=== PATIENT | male | born 1990 | race Caucasian/White ===

== ENCOUNTER 2019-06-29 | Observation (INO) | payer OTHER ==
[~2019-06-29] MED LIST: BACTRIM DS1 TAB PO
--- NOTE | 2019-06-29 00:40 | NUR ---
A/O M WITH STATED COMPLAINT HE THINKS HE BROKE HIS INJECTING NEEDLE INTO HIS RAC VEIN WHILE SHOOTING DRUGS [employer].RAC IN RED INJECTED NEUROVASC CK RUE WNL.NO PALP MASSES.
[2019-06-29 01:03] LABS: HEMATOCRIT 44.2 % (39.0-50.0); HEMOGLOBIN 15.2 g/dl (14.0-18.0); IMMATURE GRANULOCYTES 0.3 % (0.0-5.0); MEAN CELL VOLUME 89.1 fL CALC (80.0-100.0); MEAN CORPUSCULAR HGB 30.6 pG CALC (26.0-32.0); MEAN CORPUSCULAR HGB CONC 34.4 g/dL CAL (32.0-36.0); NEUT# 6.18 thou/uL (1.82-7.42); RED BLOOD COUNT 4.96 mill/uL (4.70-6.10); RED CELL DISTRI WIDTH 12.4 % (11.5-15.5)
[2019-06-29 01:19] LABS: ANION GAP 15 (6-22 (CALC)); BUN 14 mg/dL (9-20); BUN/CREATININE RATIO 12 (12-20 (CALC)); CARBON DIOXIDE 28 mmol/l (22-30); CHLORIDE 98 mmol/l (95-108); CREATININE 1.2 mg/dL (0.7-1.3); GFR > 60 ML/MIN (>=60 (CALC)); GFR FOR AFR.AMER. > 60 ML/MIN (>=60 (CALC)); POTASSIUM 4.2 mmol/l (3.5-5.1); SODIUM 138 mmol/l (137-146)
--- NOTE | 2019-06-29 01:39 | NUR ---
PT IS COMFORTABLY PAINFREE.W/P/D SKIN IVPB COMPLETED
--- NOTE | 2019-06-29 02:34 | NUR ---
W/D SKIN RUE ELEV ON BED.NO C/O PAIN NEUROVASC CK RUE WNL.WATER PO AT PT'S REQUEST
--- NOTE | 2019-06-29 03:02 | NUR ---
PHONE REPORT TO NURSE FABBY IN [facility] ICU
--- NOTE | 2019-06-29 03:08 | NUR ---
PT TO ICU VIA WC IN STAABLE CONDITION
[2019-06-29 03:15] VITALS: BP 136/66
--- NOTE | 2019-06-29 03:15 | NUR ---
29 yr old white male admitted icu3 per as medsurg overflow. sheriff deputy macias pt. transferred self to bed. bed weight obtained. photo taken of puncture site rac. #20 lac saline lock. history obtined per pt & er record. oriented to room. fall precautions initiated.
--- NOTE | 2019-06-29 06:45 | NUR ---
REPORT RECEIVED FROM Abbey ARANDA LPN. CARE ASSUMED.
--- NOTE | 2019-06-29 07:00 | NUR ---
PT RESTING IN BED WITH EYES CLOSED. PT AROUSES TO VERBAL STIMULI. PT IS ALERT AND ORIENTED X3. SHIFT ASSESSMENT COMPLETED AT THIS TIME. IV PATENT X1. CALL LIGHT IN REACH. WILL CONTINUE TO MONITOR.
[2019-06-29 08:00] VITALS: BP 123/79
--- NOTE | 2019-06-29 08:58 | NUR ---
DR JANE AT BEDSIDE.
--- NOTE | 2019-06-29 09:15 | NUR ---
CONSENT OBTAINED FOR REMOVAL OF FOREIGN BODY
--- NOTE | 2019-06-29 09:30 | NUR ---
TURKEY SANDWICH PROVIDED PER PT REQUEST.
--- NOTE | 2019-06-29 10:45 | NUR ---
DR JANE AT BEDSIDE AT THIS TIME FOR FOREIGN BODY REMOVAL.
[2019-06-29] MEDS ORDERED: KEFLEX500 MG PO (11:11)
--- NOTE | 2019-06-29 11:40 | NUR ---
PT PROVIDED LUNCH TRAY AT THIS TIME.
--- NOTE | 2019-06-29 12:05 | NUR ---
DISCHARGE INSTRUCTIONS REVIEWED WITH PATIENT AND DEPUTY BOTH VERBALIZED UNDERSTANDING. INSTRUCTIONS AND PRESCRIPTION GIVEN TO DEPUTY. #20 REMOVED TO LAC. CATH TIP INTACT. PT TOLERATED WELL.
--- NOTE | 2019-06-29 12:14 | NUR ---
Discharge instructions given. Patient verbalizes understanding of same. Discharged in stable condition via [facility] with *Other. All belongings sent with pt.
== END 2019-06-29 12:14 | DRG 909 ==
PROVIDERS: Emergency Medicine; ADMIT Surgery
PROC: 05CY0ZZ Extirpation of Matter from Upper Vein, Open Approach (ICD-10-PCS; principal; 2019-06-29)
DX: S51.841A Puncture wound with foreign body of right forearm, initial encounter (principal); I10 Essential (primary) hypertension; W26.8XXA Contact with other sharp object(s), not elsewhere classified, initial encounter; W45.8XXA Other foreign body or object entering through skin, initial encounter; Y93.89 Activity, other specified

== ENCOUNTER 2019-08-30 22:19 | Emergency (ER) | payer SELFPAY ==
[~2019-08-30] VITALS: Ht 172.7 cm; Wt 67.0 kg
[~2019-08-30 22:19] MED LIST changes: +KEFLEX500 MG PO
[2019-08-30 23:20] LABS: HEMATOCRIT 38.6 % (39.0-50.0); IMMATURE GRANULOCYTES 0.1 % (0.0-5.0); MEAN CORPUSCULAR HGB 30.6 pG CALC (26.0-32.0); MEAN CORPUSCULAR HGB CONC 32.9 g/dL CAL (32.0-36.0); NEUT# 4.39 thou/uL (1.82-7.42); RED BLOOD COUNT 4.15 mill/uL (4.70-6.10); RED CELL DISTRI WIDTH 12.8 % (11.5-15.5)
[2019-08-30 23:21] LABS: HEMOGLOBIN 12.7 g/dl (14.0-18.0)
[2019-08-30 23:34] LABS: ALBUMIN 4.7 g/dL (3.2-5.0); ALKALINE PHOSPHATASE 60 u/l (38-126); ANION GAP 12 (6-22 (CALC)); BILIRUBIN, TOTAL 0.7 mg/dL (0.0-1.4); BUN 12 mg/dL (9-20); BUN/CREATININE RATIO 11 (12-20 (CALC)); CARBON DIOXIDE 28 mmol/l (22-30); CHLORIDE 102 mmol/l (95-108); CREATININE 1.1 mg/dL (0.7-1.3); ETHYL ALCOHOL 0 mg/dl (0-30); GFR > 60 ML/MIN (>=60 (CALC)); GFR FOR AFR.AMER. > 60 ML/MIN (>=60 (CALC)); MAGNESIUM 2.1 mg/dL (1.6-2.3); POTASSIUM 3.7 mmol/l (3.5-5.1); SGOT/AST 32 u/l (17-59); SODIUM 138 mmol/l (137-146); TOTAL PROTEIN 7.8 g/dL (6.3-8.2)
[2019-08-31 06:32] LABS: URINE BILIRUBIN - DIPSTICK NEGATIVE (NEGATIVE); URINE BLOOD DIPSTICK NEGATIVE (NEGATIVE); URINE COLOR YELLOW; URINE GLUCOSE - DIPSTICK NEGATIVE (NEGATIVE); URINE KETONE NEGATIVE (NEGATIVE); URINE LEUK ESTERASE NEGATIVE (NEGATIVE); URINE NITRITE - DIPSTICK NEGATIVE (Negative); URINE PROTEIN - DIPSTICK TRACE mg/dL (NEG-TRACE); URINE SPECIFIC GRAVITY >=1.030
[2019-08-31 09:20] VITALS: BP 114/64
== END 2019-08-31 09:20 | disposition home or self-care (01) | DRG 918 ==
LOC: ED 22:19
PROVIDERS: Family Medicine
DX: T40.4X1A Poisoning by other synthetic narcotics, accidental (unintentional), initial encounter (principal); T43.621A Poisoning by amphetamines, accidental (unintentional), initial encounter; F15.10 Other stimulant abuse, uncomplicated; F11.10 Opioid abuse, uncomplicated; I10 Essential (primary) hypertension; F17.200 Nicotine dependence, unspecified, uncomplicated; Z91.5 Personal history of self-harm

== ENCOUNTER 2020-08-17 02:38 | Emergency (ER) | payer SELFPAY ==
[~2020-08-17] VITALS: Ht 172.7 cm; Wt 66.0 kg
[2020-08-17 03:13] LABS: ALKALINE PHOSPHATASE 55 u/l (38-126); ANION GAP 12 (6-22 (CALC)); BILIRUBIN, TOTAL 0.7 mg/dL (0.0-1.4); BUN 14 mg/dL (9-20); BUN/CREATININE RATIO 17 (12-20 (CALC)); CARBON DIOXIDE 26 mmol/l (22-30); CHLORIDE 103 mmol/l (95-108); CREATININE 0.8 mg/dL (0.7-1.3); ETHYL ALCOHOL 0 mg/dl (0-30); GFR > 60 ML/MIN (>=60 (CALC)); GFR FOR AFR.AMER. > 60 ML/MIN (>=60 (CALC)); POTASSIUM 3.7 mmol/l (3.5-5.1); SGOT/AST 34 u/l (17-59); SODIUM 138 mmol/l (137-146); TOTAL PROTEIN 7.2 g/dL (6.3-8.2)
[2020-08-17 03:16] LABS: HEMATOCRIT 35.1 % (39.0-50.0); HEMOGLOBIN 11.7 g/dl (14.0-18.0); IMMATURE GRANULOCYTES 0.1 % (0.0-5.0); MEAN CELL VOLUME 92.1 fL CALC (80.0-100.0); MEAN CORPUSCULAR HGB 30.7 pG CALC (26.0-32.0); MEAN CORPUSCULAR HGB CONC 33.3 g/dL CAL (32.0-36.0); NEUT# 3.24 thou/uL (1.82-7.42); RED BLOOD COUNT 3.81 mill/uL (4.70-6.10)
[2020-08-17 05:14] LABS: URINE BILIRUBIN - DIPSTICK NEGATIVE (NEGATIVE); URINE BLOOD DIPSTICK NEGATIVE (NEGATIVE); URINE COLOR YELLOW; URINE GLUCOSE - DIPSTICK NEGATIVE (NEGATIVE); URINE KETONE NEGATIVE (NEGATIVE); URINE LEUK ESTERASE NEGATIVE (NEGATIVE); URINE PH 5.5 (4.5-8.0); URINE PROTEIN - DIPSTICK 30 mg/dL (NEG-TRACE); URINE SPECIFIC GRAVITY >=1.030; URINE UROBILINOGEN - DIPSTICK 0.2 E.U./dL (0.2)
[2020-08-17 05:17] LABS: URINE NITRITE - DIPSTICK NEGATIVE (Negative)
[2020-08-17 05:30] LABS: URINE BACTERIA FEW hpf; URINE SQUAMOUS EPITHELIAL CELL FEW EPI/hpf (0-FEW); URINE WBC 20-50 WBC/hpf (0-5)
[2020-08-17 06:39] VITALS: BP 129/76
== END 2020-08-17 06:40 | disposition home or self-care (01) | DRG 897 ==
LOC: ED 02:38
PROVIDERS: Family Medicine
DX: F19.10 Other psychoactive substance abuse, uncomplicated (principal); I10 Essential (primary) hypertension; F32.9 Major depressive disorder, single episode, unspecified; F41.9 Anxiety disorder, unspecified; F17.200 Nicotine dependence, unspecified, uncomplicated; Z91.5 Personal history of self-harm

== ENCOUNTER 2021-06-15 13:18 | Emergency (ER) | payer OTHER ==
[~2021-06-15] VITALS: Ht 172.7 cm; Wt 79.1 kg
[2021-06-15] VITALS (9 sets, daily range): BP systolic 111–140; BP diastolic 64–83
[2021-06-15 13:56] LABS: HEMATOCRIT 40.7 % (39.0-50.0); HEMOGLOBIN 12.9 g/dl (14.0-18.0); IMMATURE GRANULOCYTES 0.5 % (0.0-5.0); MEAN CELL VOLUME 96.9 fL CALC (80.0-100.0); MEAN CORPUSCULAR HGB 30.7 pG CALC (26.0-32.0); MEAN CORPUSCULAR HGB CONC 31.7 g/dL CAL (32.0-36.0); NEUT# 3.87 thou/uL (1.82-7.42); RED BLOOD COUNT 4.2 mill/uL (4.70-6.10); RED CELL DISTRI WIDTH 14.2 % (11.5-15.5)
[2021-06-15 14:08] LABS: ACT PARTIAL THROMBO TIME 22.3 SECONDS (20.0-32.5); INTERNATIONAL NORMALIZED RATIO 0.9 RATIO (0.7-1.3); PROTHROMBIN TIME 9.7 SECONDS (9.0-12.5)
[2021-06-15 14:12] LABS: ALBUMIN 4.3 g/dL (3.2-5.0); ALKALINE PHOSPHATASE 51 u/l (38-126); ANION GAP 10 (6-22 (CALC)); BUN 15 mg/dL (9-20); BUN/CREATININE RATIO 21 (12-20 (CALC)); CARBON DIOXIDE 31 mmol/l (22-30); CHLORIDE 104 mmol/l (95-108); CREATININE 0.7 mg/dL (0.7-1.3); GFR > 60 ML/MIN (>=60 (CALC)); GFR FOR AFR.AMER. > 60 ML/MIN (>=60 (CALC)); LIPASE 115 u/l (23-300); POTASSIUM 4.3 mmol/l (3.5-5.1); SGOT/AST 59 u/l (17-59); SODIUM 141 mmol/l (137-146); TOTAL PROTEIN 7.7 g/dL (6.3-8.2)
[2021-06-15 14:19] LABS: BILIRUBIN, TOTAL 0.4 mg/dL (0.0-1.4)
[2021-06-15 15:55] LABS: URINE BILIRUBIN - DIPSTICK NEGATIVE (NEGATIVE); URINE BLOOD DIPSTICK NEGATIVE (NEGATIVE); URINE COLOR YELLOW; URINE GLUCOSE - DIPSTICK NEGATIVE (NEGATIVE); URINE KETONE NEGATIVE (NEGATIVE); URINE LEUK ESTERASE NEGATIVE (NEGATIVE); URINE PROTEIN - DIPSTICK NEGATIVE (NEG-TRACE); URINE UROBILINOGEN - DIPSTICK 0.2 E.U./dL (0.2)
[2021-06-15 15:58] LABS: URINE NITRITE - DIPSTICK NEGATIVE (Negative)
[2021-06-15 17:51] LABS: AMYLASE 76 u/l (30-110); ETHYL ALCOHOL 0 mg/dl (0-30)
== END 2021-06-15 19:15 | disposition designated cancer center or children's hospital (05) | DRG 918 ==
LOC: ED 13:18
DX: T54.92XA Toxic effect of unspecified corrosive substance, intentional self-harm, initial encounter (principal); I10 Essential (primary) hypertension; F32.A Depression, unspecified; F41.9 Anxiety disorder, unspecified; F17.200 Nicotine dependence, unspecified, uncomplicated; Y92.149 Unspecified place in prison as the place of occurrence of the external cause; Z91.51 Personal history of suicidal behavior
CPT/HCPCS: Q9967

== ENCOUNTER 2022-05-17 14:08 | Emergency (ER) | payer SELFPAY ==
[~2022-05-17] VITALS: Ht 172.7 cm; Wt 59.0 kg
[2022-05-17 14:47] LABS: BASO% 0.5 % (0-3); EOS% 1.3 % (0-8); HEMATOCRIT 39.9 % (39.0-50.0); IMMATURE GRANULOCYTES 0.1 % (0.0-5.0); LYMPH% 10.4 % (15-41); MEAN CELL VOLUME 91.5 fL CALC (80.0-100.0); MEAN CORPUSCULAR HGB 29.8 pG CALC (26.0-32.0); MEAN CORPUSCULAR HGB CONC 32.6 g/dL CAL (32.0-36.0); MONO% 7.6 % (2-13); NEUT# 6.82 thou/uL (1.82-7.42); NEUT% 80.1 % (42-76); RED BLOOD COUNT 4.36 mill/uL (4.70-6.10); RED CELL DISTRI WIDTH 12.6 % (11.5-15.5)
[2022-05-17 14:48] VITALS: BP 128/83
[2022-05-17 15:01] VITALS: BP 118/100
[2022-05-17 15:09] LABS: ALBUMIN 4.7 g/dL (3.2-5.0); ANION GAP 10 (6-22 (CALC)); BUN 13 mg/dL (9-20); BUN/CREATININE RATIO 17 (12-20 (CALC)); CARBON DIOXIDE 28 mmol/l (22-30); CHLORIDE 105 mmol/l (95-108); CREATININE 0.8 mg/dL (0.7-1.3); ETHYL ALCOHOL 0 mg/dl (0-30); GFR FOR AFR.AMER. > 60 ML/MIN (>=60 (CALC)); GFR OTHER RACES > 60 ML/MIN (>=60 (CALC)); POTASSIUM 4.2 mmol/l (3.5-5.1); SGOT/AST 47 u/l (17-59); SODIUM 139 mmol/l (137-146); TOTAL PROTEIN 8.8 g/dL (6.3-8.2)
[2022-05-17 15:11] LABS: ALKALINE PHOSPHATASE 80 u/l (38-126); BILIRUBIN, TOTAL 0.7 mg/dL (0.2-1.3)
[2022-05-17 15:18] LABS: URINE BILIRUBIN - DIPSTICK NEGATIVE (NEGATIVE); URINE BLOOD DIPSTICK NEGATIVE (NEGATIVE); URINE COLOR YELLOW; URINE GLUCOSE - DIPSTICK NEGATIVE (NEGATIVE); URINE KETONE NEGATIVE (NEGATIVE); URINE LEUK ESTERASE NEGATIVE (NEGATIVE); URINE PROTEIN - DIPSTICK NEGATIVE (NEG-TRACE); URINE SPECIFIC GRAVITY 1.025; URINE UROBILINOGEN - DIPSTICK 0.2 E.U./dL (0.2)
[2022-05-17 15:30] VITALS: BP 116/75
[2022-05-17 15:30] LABS: URINE NITRITE - DIPSTICK NEGATIVE (Negative)
[2022-05-17 16:00] VITALS: BP 118/76
[2022-05-17] MEDS ORDERED: ZOFRAN4 MG/TAB PO (16:01)
[2022-05-17] MEDS ORDERED: DICYCLOMINE10 MG PO (16:01)
[2022-05-17] MEDS ORDERED: CLONIDINE HYDR0.1 M1 PO (16:01)
[2022-05-17 16:30] VITALS: BP 118/68
[2022-05-17 16:49] VITALS: BP 118/68
== END 2022-05-17 16:59 | disposition home or self-care (01) | DRG 897 ==
LOC: ED 14:08
PROVIDERS: Family Medicine; Nurse Practitioner
DX: F19.10 Other psychoactive substance abuse, uncomplicated (principal); R51.9 Headache, unspecified; I10 Essential (primary) hypertension

== ENCOUNTER 2022-08-02 09:14 | Emergency (ER) | payer SELFPAY ==
[2022-08-02] VITALS (10 sets, daily range): BP systolic 64–120; BP diastolic 43–72
[~2022-08-02] VITALS: Ht 172.7 cm; Wt 65.9 kg
[~2022-08-02 09:14] MED LIST changes: +CLONIDINE HYDR0.1 M1 PO; +DICYCLOMINE10 MG PO; +ZOFRAN4 MG/TAB PO
== END 2022-08-02 12:35 | disposition home or self-care (01) | DRG 951 ==
LOC: ED 09:14
DX: Z20.2 Contact with and (suspected) exposure to infections with a predominantly sexual mode of transmission (principal); I10 Essential (primary) hypertension; F41.9 Anxiety disorder, unspecified; F32.A Depression, unspecified; F17.210 Nicotine dependence, cigarettes, uncomplicated

== ENCOUNTER 2022-08-03 13:28 | Emergency (ER) | payer SELFPAY ==
[2022-08-03] VITALS (71 sets, daily range): BP systolic 88–168; BP diastolic 49–141
[~2022-08-03] VITALS: Ht 172.7 cm; Wt 73.0 kg
[2022-08-03 14:46] LABS: BASO% 1.3 % (0-3); HEMATOCRIT 41.9 % (39.0-50.0); HEMOGLOBIN 13.6 g/dl (14.0-18.0); LYMPH% 9.9 % (15-41); MEAN CELL VOLUME 91.3 fL CALC (80.0-100.0); MEAN CORPUSCULAR HGB 29.6 pG CALC (26.0-32.0); MEAN CORPUSCULAR HGB CONC 32.5 g/dL CAL (32.0-36.0); MONO% 0.7 % (2-13); NEUT# 1.33 thou/uL (1.82-7.42); NEUT% 88.1 % (42-76); RED BLOOD COUNT 4.59 mill/uL (4.70-6.10); RED CELL DISTRI WIDTH 13.3 % (11.5-15.5)
[2022-08-03 14:47] LABS: ALBUMIN 4.3 g/dL (3.2-5.0); ALKALINE PHOSPHATASE 101 u/l (38-126); ANION GAP 13 (6-22 (CALC)); BUN 16 mg/dL (9-20); BUN/CREATININE RATIO 15 (12-20 (CALC)); CARBON DIOXIDE 27 mmol/l (22-30); CHLORIDE 101 mmol/l (95-108); CREATININE 1.1 mg/dL (0.7-1.3); GFR FOR AFR.AMER. > 60 ML/MIN (>=60 (CALC)); GFR OTHER RACES > 60 ML/MIN (>=60 (CALC)); POTASSIUM 4.1 mmol/l (3.5-5.1); SODIUM 137 mmol/l (137-146); TOTAL PROTEIN 7.6 g/dL (6.3-8.2)
[2022-08-03 15:03] LABS: SGOT/AST 219 u/l (17-59)
[2022-08-03 18:15] LABS: URINE BILIRUBIN - DIPSTICK NEGATIVE (NEGATIVE); URINE BLOOD DIPSTICK NEGATIVE (NEGATIVE); URINE COLOR YELLOW; URINE GLUCOSE - DIPSTICK NEGATIVE (NEGATIVE); URINE KETONE NEGATIVE (NEGATIVE); URINE LEUK ESTERASE NEGATIVE (NEGATIVE); URINE PROTEIN - DIPSTICK NEGATIVE (NEG-TRACE); URINE SPECIFIC GRAVITY 1.015
[2022-08-03 18:17] LABS: URINE NITRITE - DIPSTICK NEGATIVE (Negative)
== END 2022-08-03 22:16 | disposition short-term general hospital (02) | DRG 872 ==
LOC: ED 13:28
PROVIDERS: Nurse Practitioner
PROC: 05HM33Z Insertion of Infusion Device into Right Internal Jugular Vein, Percutaneous Approach (ICD-10-PCS; principal; 2022-08-03)
PROC: 3E043XZ Introduction of Vasopressor into Central Vein, Percutaneous Approach (ICD-10-PCS; 2022-08-03)
DX: A41.9 Sepsis, unspecified organism (principal); R65.20 Severe sepsis without septic shock; I95.9 Hypotension, unspecified; F15.10 Other stimulant abuse, uncomplicated; F11.10 Opioid abuse, uncomplicated; I10 Essential (primary) hypertension; F41.9 Anxiety disorder, unspecified; F32.A Depression, unspecified; F17.200 Nicotine dependence, unspecified, uncomplicated; Z91.51 Personal history of suicidal behavior
CPT/HCPCS: J2060; Q9967

== ENCOUNTER 2022-10-18 23:19 | Emergency (ER) | payer SELFPAY ==
[~2022-10-18] VITALS: Ht 172.7 cm; Wt 76.0 kg
[2022-10-18 23:24] VITALS: BP 114/79
[2022-10-18 23:30] VITALS: BP 127/80
[2022-10-18 23:48] VITALS: BP 127/79
[2022-10-18 23:59] LABS: BASO% 1.3 % (0-3); EOS% 2.2 % (0-8); HEMATOCRIT 38.1 % (39.0-50.0); HEMOGLOBIN 12.3 g/dl (14.0-18.0); IMMATURE GRANULOCYTES 0.1 % (0.0-5.0); LYMPH% 33.8 % (15-41); MEAN CORPUSCULAR HGB 29.7 pG CALC (26.0-32.0); MEAN CORPUSCULAR HGB CONC 32.3 g/dL CAL (32.0-36.0); MONO% 7.1 % (2-13); NEUT# 3.77 thou/uL (1.82-7.42); NEUT% 55.5 % (42-76); RED BLOOD COUNT 4.14 mill/uL (4.70-6.10); RED CELL DISTRI WIDTH 12.9 % (11.5-15.5)
[2022-10-19] VITALS (13 sets, daily range): BP systolic 97–119; BP diastolic 58–81
[2022-10-19 00:12] LABS: ALKALINE PHOSPHATASE 91 u/l (38-126); ANION GAP 11 (6-22 (CALC)); BILIRUBIN, TOTAL 0.8 mg/dL (0.2-1.3); BUN 23 mg/dL (9-20); BUN/CREATININE RATIO 22 (12-20 (CALC)); CARBON DIOXIDE 28 mmol/l (22-30); CHLORIDE 100 mmol/l (95-108); CREATININE 1.1 mg/dL (0.7-1.3); GFR FOR AFR.AMER. > 60 ML/MIN (>=60 (CALC)); GFR OTHER RACES > 60 ML/MIN (>=60 (CALC)); POTASSIUM 3.7 mmol/l (3.5-5.1); SODIUM 136 mmol/l (137-146); TOTAL PROTEIN 7.6 g/dL (6.3-8.2)
[2022-10-19 00:19] LABS: SGOT/AST 50 u/l (17-59)
[2022-10-19 01:19] LABS: URINE BLOOD DIPSTICK Negative (NEGATIVE); URINE GLUCOSE - DIPSTICK 100 mg/dL (NEGATIVE); URINE KETONE 15 mg/dL (NEGATIVE); URINE LEUK ESTERASE Negative (NEGATIVE); URINE NITRITE - DIPSTICK Negative (Negative); URINE PH 5.5 (4.5-8.0); URINE PROTEIN - DIPSTICK Trace mg/dL (NEG-TRACE); URINE SPECIFIC GRAVITY >=1.030; URINE UROBILINOGEN - DIPSTICK 0.2 E.U./dL (0.2)
[2022-10-19 01:20] LABS: URINE COLOR Yellow
== END 2022-10-19 05:58 | disposition home or self-care (01) | DRG 313 ==
LOC: ED 23:19
PROVIDERS: Emergency Medicine
DX: R07.89 Other chest pain (principal); F19.10 Other psychoactive substance abuse, uncomplicated; I10 Essential (primary) hypertension; F32.A Depression, unspecified; F41.9 Anxiety disorder, unspecified; F17.200 Nicotine dependence, unspecified, uncomplicated; Z91.51 Personal history of suicidal behavior